=== PATIENT | female | born 1980 | race Hispanic/Latino ===

== ENCOUNTER 2018-02-12 12:00 | Emergency (ER) | payer OTHER ==
[2018-02-12 12:21] VITALS: BMI 15.9
--- NOTE | 2018-02-12 12:25 | ED PDOC ---
Arrival/HPI - General Time Seen by Provider: 02/12/18 12:21 Historian: Patient, EMS - History of Present Illness Narrative History of Present Illness (Text): 02/12/18 12:27 38 y/o female, no significant pmh, psychiatric history including alcohol abuse, nkda, biba for etoh intoxication. Pt. was found inside the liquor store which the manager spa ask the patient to leave the store and call the police, police arrive and found the patient to be intoxicated which send the patient to the ER for evaluation. Pt. is in the ER noted to be tachycardia, stated that she feels anxious, been drinking around the clock including nirav/liquors for the past 5 days. Pt. has no homocidal or suicidal ideation, no auditory or visual hallucination, eating and drinking well, no palpitation, no rash, no other medical or psychological complaints. Past Medical History - Provider Review Nursing Documentation Reviewed: Yes Family/Social History - Physician Review Nursing Documentation Reviewed: Yes Family/Social History: Unknown Family HX Allergies/Home Meds Allergies/Adverse Reactions: Allergies No Known Allergies Allergy (Verified 02/12/18 12:21) Review of Systems - Review of Systems Constitutional: absent: Fatigue, Fevers Eyes: absent: Vision Changes ENT: absent: Hearing Changes Respiratory: absent: SOB, Cough Cardiovascular: absent: Chest Pain Gastrointestinal: absent: Abdominal Pain, Nausea, Vomiting Skin: absent: Rash, Pruritis Neurological: absent: Headache, Dizziness Psychiatric: Anxiety. absent: Depression, Suicidal Ideation Physical Exam Vital Signs Reviewed: Yes Vital Signs Temp Pulse Resp BP Pulse Ox 02/12/18 19:57 98 F 83 18 112/86 96 02/12/18 16:30 118 H 20 120/68 97 02/12/18 14:30 97.8 F 120 H 18 136/76 98 02/12/18 12:20 98.0 F 132 H 18 131/86 99 Temperature: Afebrile Blood Pressure: Normal Pulse: Tachycardic Respiratory Rate: Normal Appearance: Positive for: Well-Appearing, Non-Toxic, Comfortable Pain Distress: None Mental Status: Positive for: Alert and Oriented X 3 - Systems Exam Head: Present: Atraumatic, Normocephalic Pupils: Present: PERRL Extroacular Muscles: Present: EOMI Conjunctiva: Present: Normal Ears: Present: NORMAL TM, Normal Canal. No: Erythema Mouth: Present: Moist Mucous Membranes Nose (External): Present: Atraumatic. No: Abrasion, Contusion Nose (Internal): Present: Normal Inspection, No Active Bleeding. No: Rhinorrhea Neck: Present: Normal Range of Motion Respiratory/Chest: Present: Clear to Auscultation, Good Air Exchange. No: Respiratory Distress, Accessory Muscle Use Cardiovascular: Present: Regular Rate and Rhythm, Normal S1, S2. No: Murmurs Abdomen: No: Tenderness, Distention, Peritoneal Signs Back: Present: Normal Inspection Upper Extremity: Present: Normal Inspection. No: Cyanosis, Edema Lower Extremity: Present: Normal Inspection. No: Edema Neurological: Present: GCS=15, CN II-XII Intact, Speech Normal Skin: Present: Warm, Dry, Normal Color. No: Rashes Psychiatric: Present: Alert, Oriented x 3, Anxious Medical Decision Making ED Course and Treatment: 02/12/18 12:36 Differential: alcohol intoxication vs. electrolyte imbalance vs. drug abuse vs. anxiety -labs/uds -ekg -IV banana bag -Observe and reassess 02/12/18 13:46 -Labs are non-significant but the etoh noted to be 343 -Beta hcg is negative -Drug screen show +cannabinoid. -Pt. stated that she feels anxious, request librium 25mg, ordered by me. -Pt. has no other complaint at this time, no abdominal or pelvic pain, no hand or tongue fasciculation, no signs of withdrawal. . -Pt. has no one to pick her up, will observe the patient in the ER department. 02/12/18 15:13 -Pt. stated that she need another dose of anxiolytic as she wants to sleep, ativan 1mg IV ordered with IVF infusion @ 150cc/hr. Pt. has no hand tremors and no tongue fasciculation, no signs of withdrawal. 02/12/18 18:43 -pt. request another dose of librium as she feels anxious now, refused psychiatric which I also offer her the admission. 02/12/18 20:02 -Pt. request librium prescription for her anxiety, offer psychiatric evaluation but she declined and stated that she has no homocidal/suicidal ideation and no auditory or visual hallucination. I checked the [facility] report and there is no visible prescription given in the past 1 year under this name and date of . -Pt. had a nap in the ER, vitally stable now after vital signs repeated, no hand tremors or tongue fasciculation, not anxious, no signs of alcohol or drug withdrawal, offer psychiatric evaluation for her drug abuse problem and psychiatric care but she refused. I offered her to stay in the ER for further evaluation and monitoring but she refused, request to be discharged home. -Pt. is currently clinically sobered, walking independently with normal gait and posture, alert and oriented x 4, request to be discharged, will discharge home as she wishes -Discharge home with librium, avoid alcohol abuse, follow up with your own pmd within 2 days, return to the ER for any new or worsening signs or symptoms. - Lab Interpretations Lab Results: 02/12/18 12:45 02/12/18 12:45 Lab Results 02/12/18 12:45: Urine Opiates Screen Negative, Urine Methadone Screen Negative, Ur Barbiturates Screen Negative, Ur Phencyclidine Scrn Negative, Ur Amphetamines Screen Negative, U Benzodiazepines Scrn Negative, U Oth Cocaine Metabols Negative, U Cannabinoids Screen Positive H 02/12/18 12:45: Beta HCG, Quant < 2.39, Alcohol, Quantitative 343 H* 02/12/18 12:45: WBC 7.7, RBC 4.61, Hgb 13.7, Hct 37.8, MCV 82.0, MCH 29.7, MCHC 36.2, RDW 14.0, Plt Count 360, MPV 9.9, Gran % 69.0 H, Lymph % (Auto) 25.3, [place] % (Auto) 4.2, Eos % (Auto) 0.7 L, Baso % (Auto) 0.8, Gran # 5.31, Lymph # ( Auto) 1.9, [place] # (Auto) 0.3, Eos # (Auto) 0.1, Baso # (Auto) 0.06 02/12/18 12:45: Sodium 146, Potassium 4.2, Chloride 106, Carbon Dioxide 17 L, Anion Gap 27 H, BUN 11, Creatinine 0.7, Est GFR ( Amer) > 60, Est GFR ( Non-Af Amer) > 60, Random Glucose 93, Calcium 9.2, Magnesium 2.0, Total Bilirubin 0.5, AST 56 H, ALT 33, Alkaline Phosphatase 95, Total Protein 8.3, Albumin 4.9 H, Globulin 3.4, Albumin/Globulin Ratio 1.4 - Medication Orders Current Medication Orders: Sodium Chloride (Sodium Chloride 0.9%) 1,000 mls @ 150 mls/hr IV .Q6H40M [facility] Last Admin: 02/12/18 15:42 Dose: 150 mls/hr eMAR Start Stop Document 02/12/18 15:42 SRE (Rec: 02/12/18 15:45 SRE [id number]) Intravenous Solution Start Date 02/12/18 Start Time 15:43 End Date 02/12/18 End time 23:00 Total Infusion Time 437 Discontinued Medications Chlordiazepoxide (Librium) 25 mg PO STAT STA PRN Reason: Protocol Stop: 02/12/18 13:52 Last Admin: 02/12/18 14:27 Dose: 25 mg Chlordiazepoxide (Librium) 25 mg PO STAT STA PRN Reason: Protocol Stop: 02/12/18 18:43 Last Admin: 02/12/18 18:48 Dose: 25 mg Multivitamins/Vitamin C 10 ml/Thiamine HCl 100 mg/ Folic Acid 1 mg/ Dextrose 1, 011.2 mls @ 1,000 mls/hr IV .Q1H1M ONE Stop: 02/12/18 13:26 Last Admin: 02/12/18 12:53 Dose: 1,000 mls/hr eMAR Start Stop Document 02/12/18 12:53 SRE (Rec: 02/12/18 12:54 SRE [id number]) Intravenous Solution Start Date 02/12/18 Start Time 12:53 End Date 02/12/18 End time 13:55 Total Infusion Time 62 Lorazepam (Ativan) 1 mg IVP ONCE ONE PRN Reason: Protocol Stop: 02/12/18 15:13 Last Admin: 02/12/18 15:45 Dose: 1 mg IVP Administration Document 02/12/18 15:45 SRE (Rec: 02/12/18 15:46 SRE [id number]) Charges for Administration # of IVP Administrations 1 - PA / CROCHETER / Resident Statement / has reviewed & agrees with the documentation as recorded. Disposition/Present on Arrival - Present on Arrival Any Indicators Present on Arrival: No History of DVT/PE: No History of Uncontrolled Diabetes: No Urinary Catheter: No History of Decub. Ulcer: No - Disposition Have Diagnosis and Disposition been Completed?: Yes Diagnosis: Alcohol intoxication, Anxiety Disposition: HOME/ ROUTINE Disposition Time: 12:37 Patient Plan: Discharge Patient Problems: Current Active Problems Problem Status Onset Alcohol intoxication Acute Condition: IMPROVED Additional Instructions: Discharge home with education on follow up with your own pmd within 2 days, avoid public intoxication, return to the ER for any new or worsening signs or symptoms. Prescriptions: chlordiazePOXIDE [Chlordiazepoxide HCl] 2 cap PO TID PRN #24 cap PRN Reason: Other Referrals: PCP,NO [Primary Care Provider] - [place] up [place] [facility] [place] [facility] [place] - Follow up with primary Forms: WORK NOTE
[2018-02-12] MEDS ORDERED: Multivitamin (MVI) 10 ML, Thiamine 100 MG, Folic Acid 1 MG in Dextrose 5% In Water 1,00... IV ONE (12:26)
[2018-02-12 13:19] LABS: BASO # 0.06 K/mm3 (0.0-2.0); BASO % 0.8 % (0.0-3.0); EOS # 0.1 (0.0-0.7); EOS % 0.7 % (1.5-5.0); GRAN # 5.31 (1.4-6.5); HEMOGLOBIN 13.7 g/dL (12.0-16.0); LYMPH # 1.9 (1.2-3.4); LYMPH % 25.3 % (22.0-35.0); MEAN CORPUSCULAR HEMOGLOBIN 29.7 pg (25.0-35.0); MEAN CORPUSCULAR HGB CONC 36.2 g/dl (31.0-37.0); MEAN PLATELET VOLUME 9.9 fl (7.0-11.0); MONO # 0.3 (0.1-0.6); MONO % 4.2 % (1.0-6.0); RBC 4.61 10^6/uL (3.5-6.1); WHITE BLOOD COUNT 7.7 10^3/ul (4.5-11.0)
[2018-02-12 13:24] LABS: ALB/GLOB RATIO 1.4 (1.1-1.8); ALBUMIN 4.9 g/dL (3.0-4.8); ALT/SGPT 33 U/L (7-56); AST/SGOT 56 U/L (14-36); BLOOD UREA NITROGEN 11 mg/dL (7-21); CALCIUM 9.2 mg/dL (8.4-10.5); GFR NON-AFRICAN AMERICAN > 60
[2018-02-12 13:36] LABS: BARBITURATES, UR NEGATIVE (NEGATIVE); BENZODIAZEPINES, UR NEGATIVE (NEGATIVE); OPIATES, UR NEGATIVE (NEGATIVE); PHENCYCLIDINE, UR NEGATIVE (NEGATIVE)
[2018-02-12] MEDS ORDERED: Sodium Chloride 0.9% 1,000 ML IV SCH (15:15)
[2018-02-12 19:58] VITALS: BP 112/86; PULSE 83; RESP 18; O2SAT 96
[2018-02-12 20:54] VITALS: TEMP 98
--- NOTE | 2018-02-13 15:41 | CARD ---
APPROVED REPORT Date of service: 02/12/2018 EKG Measurement Heart [id number] <Conclusion> Sinus tachycardia Otherwise normal ECG
== END 2018-02-12 20:30 | disposition home or self-care (01) ==
LOC: ED 12:00 → MERGE 12:00 → ED 20:30
DX: F10.129 Alcohol abuse with intoxication, unspecified (principal); F41.9 Anxiety disorder, unspecified
CPT/HCPCS: 80053; 80320; 80324; 80345; 80346; 80349; 80353; 80358; 80361; 83735; 83992; 84702; 85025; 93005; 96361; 96365; 96375; 99284; J2060; J3411; J7030; J7070